=== PATIENT | male | born 1980 | race Caucasian/White ===

== ENCOUNTER 2022-04-09 21:56 | Emergency (ER) | payer OTHER ==
[2022-04-09 23:53] LABS: BASOPHIL 0.4 % (0-2); EOSINOPHIL 3.4 % (0-5); HCT 32.5 % (42.0-52.0); HGB 10.6 g/dl (13.2-18.0); LYMPHOCYTE 35.3 % (15-48); MCH 27.3 pg (25.0-31.0); MCHC 32.6 g/dL (32.0-36.0); MCV 83.8 fL (78.0-100.0); MONOCYTE 5.4 % (0-12); MPV 8.3 fL (6.0-9.5); NRBC 0; PLT 353 K/uL (150-400); RBC 3.88 M/uL (4.70-6.00); RDW 13.9 % (11.5-14.0); WBC 8.4 K/uL (4.0-10.5)
[2022-04-10 00:11] LABS: PROTHROMBIN TIME 12.9 SECONDS (11.9-13.9); PTT 30.2 SECONDS (24.9-34.6)
[2022-04-10 00:14] LABS: ALBUMIN 2.4 g/dL (3.4-5.0); BILIRUBIN - TOTAL 0.2 mg/dL (0.2-1.0); BUN/CREAT RATIO (CALC) 26.8 RATIO; CREATININE 0.41 mg/dL (0.67-1.17); GLOBULIN (CALCULATION) 4.8 g/dL; POTASSIUM 3.8 mmol/L (3.5-5.1); TOTAL PROTEIN 7.2 g/dL (6.4-8.2)
[2022-04-10 00:54] LABS: BILIRUBIN NEGATIVE (NEGATIVE); BLOOD NEGATIVE Ery/uL (NEGATIVE); CLARITY CLEAR (CLEAR); COLOR YELLOW (YELLOW); GLUCOSE (U) 3+ mg/dL (NORMAL); LEUKOCYTES NEGATIVE Leu/uL (NEGATIVE); NITRITE NEGATIVE (NEGATIVE); PROTEIN NEGATIVE (NEGATIVE); SPECIFIC GRAVITY 1.015 (1.001-1.030); UROBILINOGEN 0.2 mg/dL (0.2-1.0); pH 7.5 (5.0-9.0)
[2022-04-10 01:44] LABS: BARBITURATES NEGATIVE (NEGATIVE); ECSTASY (MDMA) NEGATIVE (NEGATIVE); MARIJUANA (THC) NEGATIVE (NEGATIVE); METHADONE NEGATIVE (NEGATIVE); OPIATES NEGATIVE (NEGATIVE)
[2022-04-10 01:45] LABS: AMPHETAMINES NEGATIVE (NEGATIVE); OXYCODONE NEGATIVE (NEGATIVE)
[2022-04-10] MEDS ORDERED: NOVOLIN 70100 UNIT/2 SC (06:45)
[2022-04-10] MEDS ORDERED: METRONIDAZOLE500 MG PO (06:45)
[2022-04-10] MEDS ORDERED: ZESTRIL5 MG PO (06:45)
[2022-04-10] MEDS ORDERED: PREDNISONE 10MG10 MG PO (06:45)
== END 2022-04-10 08:15 | disposition home or self-care (01) ==
LOC: FER 21:56
PROVIDERS: Emergency Medicine
DX: I10 Essential (primary) hypertension (principal); E11.9 Type 2 diabetes mellitus without complications; K50.90 Crohn's disease, unspecified, without complications; R00.0 Tachycardia, unspecified; I49.3 Ventricular premature depolarization; Z88.5 Allergy status to narcotic agent
CPT/HCPCS: 36415; 71045; 80053; 80305; 81003; 83036; 83880; 84484; 85025; 85610; 85730; 93005; 96372; J2930; J7030; Q0162